=== PATIENT | male | born 1990 | race African-American/Black ===

== ENCOUNTER 2024-05-04 13:15 | Emergency (ER) | payer MEDICAID, SELFPAY ==
[2024-05-04 14:02] VITALS: BP 152/104; PULSE 83; RESP 17; TEMP 36.6; O2SAT 98; BMI 38.7
--- NOTE | 2024-05-04 14:02 | ED_ITS ---
HPI - General Adult General Chief complaint: General Medical Stated complaint: Med Refill Time Seen by Provider: 05/04/24 14:07 Source: patient Mode of arrival: ambulatory Limitations: no limitations History of Present Illness HPI narrative: Patient is a 33-year-old male who presents to the emergency department requesting medication refill. He reports that he was recently at a [facility] home in [place] after release from being incarcerated, he was transferred to [facility] in [place], reports he has ran out of his medication and requires refill on trazodone 300 mg by mouth at bedtime, clonidine 0.2 mg QID by mouth as needed, quetiapine 200mg by mouth at bedtime (this information is provided from empty blister packs of his medication). He reports that he ran out of his medications 2 weeks ago. He does not have any care yet established with a primary care provider or Psychiatry. He offers no physical complaints. Related Data Allergies Allergy/AdvReac Type Severity Reaction Status Date / Time No Known Allergies Allergy Verified 05/04/24 14:04 Review of Systems Review of Systems: Yes all other systems are reviewed and are negative [facility], [facility] Past Medical History Attestation statement: The following information was validated with the patient. Source: old records reviewed Social History Social History Advance Directives: No Advance Directives Information Provided: No Physical Exam ED Vital Signs: Vital Signs - 24 hr 05/04/24 14:02 05/04/24 16:38 Temperature 98 F 98 F Pulse Rate 83 83 Respiratory Rate 17 17 Blood Pressure 152/104 H 152/104 H Pulse Oximetry 98 98 Oxygen Delivery Method Room Air Room Air BMI result Body Mass Index 38.7 Appearance: Alert.?Oriented to person, place and time. No acute distress.?Normal affect. Neck: Normal inspection.? Neck supple.?? CVS: Heart sounds normal. Normal heart rate and rhythm.? Pulses normal.?? Respiratory: No respiratory distress.? Lung sounds clear to auscultation bilaterally?? Abdomen: Soft and non-tender. Normoactive bowel sounds. Skin: Skin warm and dry.? Normal skin color.? Extremities: No lower extremity edema.? Neuro: Moves all extremities spontaneously. Sensation intact bilaterally. CN II- XII intact. No focal neuro deficits. Ambulates with normal steady gait. Course Course Course Narrative: This is an RME performed by Jay Medeiros CNP: Additional HPI, ROS, PE not included below will be deferred to primary provider. Patient is a 33-year-old male who presents to the emergency department requesting medication refill. He reports that he was recently at a [facility] home in [place], he was transferred to [facility] in [place], reports he has ran out of his medication and requires refill on trazodone 300 mg by mouth at bedtime, clonidine 0.2 mg QID by mouth as needed, quetiapine 200mg by mouth at bedtime (this information is provided from empty blister packs of his medication). He does not have any care yet established with a primary care provider or Psychiatry. He offers no physical complaints. Medical Decision Making Medical Decision Making MDM Narrative: Patient is a 33-year-old male who presents to the emergency department requesting assistance medication refill as per HPI. Overall he appears well, no ntoxic, afebrile. He is without any physical complaints and his physical examination is benign. He denies suicidal or homicidal ideations, at this time I feel that he is stable and not in acute crisis. I consulted with care team, as I anticipate that patient will seek time delays in establishing care as a new patient either PCP or Psychiatry, may subsequently return back to emergency department for additional refills. Given his high dosages of his medications, and not having been on them for the past week, I do not feel comfortable reinitiating these medications at this time. Differential Diagnosis Differential Diagnoses: The differential diagnosis associated with the presentation includes (See narrative above) Consult Healthcare Provider Management of the patient was discussed with: Behavioral Health Provider Klaudia from care team met with patient, advised that he should present to [facility] walk-in clinic in [place] for emergent assistance with this request. He spoke with his porter sample case to determine whether transportation would be permitted for this, he was offered LYFT services to [facility] but he would need to arrange subsequent transportation Discharge Plan Discharge Clinical Impression: Depression Patient Disposition: Home, Self-Care Instructions: Depression (ED) Additional Instructions: As discussed, please present to [facility] clinic on [facility] in [place] as they may be able to assist do more urgent access to a provider. Return to the ED with any new or worsening symptoms or concerns Referrals: Physician,None [Primary Care Provider] - Interventions: ED Discharge Assessment Last Done: 05/04/24 16:38 Discharge Date/Time: 05/04/24 17:10 Print Language: Setswana
[2024-05-04 16:38] VITALS: BP 152/104; PULSE 83; RESP 17; TEMP 36.6; O2SAT 98
== END 2024-05-04 17:10 | disposition home or self-care (01) ==
LOC: HO.ED 16:54
PROVIDERS: Emergency Provider Student in an Organized Health Care Education/Training Program
DX: F32.A Depression, unspecified (principal)
CPT/HCPCS: 99282